=== PATIENT | female | born 1985 | race Caucasian/White ===

== ENCOUNTER → 2017-12-15 | Outpatient (CLI) | payer SELFPAY ==
--- NOTE | 2017-12-15 15:38 | RADIOLOGY REPORT (SQ) ---
EXAM DESCRIPTION: U/S OB TRANSVAGINAL W/O DOP COMPLETED DATE/TIME: 12/15/2017 2:50 pm REASON FOR STUDY: ENCTR FOR SUPERVISION OF NORMAL 1ST , 1ST TRIMESTER (Z34.01) Z34.01 ENCN TR FOR SUPRVSN OF NORMAL FIRST PREG, FIRST TRIMES COMPARISON: None. TECHNIQUE: Transvaginal static and realtime grayscale images acquired of the pelvis. Additional jannet cted spectral and color Doppler images recorded. All images stored on PACs. [facility] Not available. CLINICAL DATES: LMP 10/09/2017 7 weeks 5 days LIMITATIONS: None. FINDINGS: FETUS: Living intrauterine . ULTRASOUND EGA: 7 weeks 5 days ULTRASOUND PAULINE: 07/29/2018 CRL: 1.6 cm. FHR: 171 beats per minute. SUBCHORIONIC BLEED: No SIZE OF BLEED: Not applicable. UTERUS: No masses or anomalies. 9.5 x 5.7 cm. CERVICAL LENGTH: Not measured. Closed. RIGHT ADNEXA: Normal ovary with normal vascular flow. 3.2 x 2.3 x 2.2 cm. No adnexal free fluid. No adnexal masses. LEFT ADNEXA: Normal ovary with normal vascular flow. 2.6 x 2.5 x 1.9 cm. No adnexal free fluid. No adnexal masses. FREE FLUID: None. OTHER: No other significant finding. IMPRESSION: LIVING INTRAUTERINE . EGA 7 weeks 5 days. Trimester of : First - 0 to 13 weeks. TECHNICAL DOCUMENTATION: JOB ID: [id number] [employer]- All Rights Reserved Reading location - IP/workstation name: [email or web address]
== END ==
LOC: RAD 14:07
PROVIDERS: ATTEND Nurse Practitioner Women's Health
DX: Z34.01 Encounter for supervision of normal first pregnancy, first trimester (principal)
CPT/HCPCS: 76817